=== PATIENT | male | born 1980 | race Caucasian/White ===

== ENCOUNTER → 2021-11-19 | Outpatient (CLI) | payer OTHER ==
--- NOTE | 2021-11-19 08:33 | RAD ---
INDICATION: Reason: RUQ/ LUQ PAIN / Spl. Instructions: / History: COMPARISON: None. TECHNIQUE: Grayscale and color ultrasound images obtained through the abdomen. FINDINGS: Pancreas: Largely obscured by overlying structures Liver: Echotexture within normal limits. Gallbladder: 4 mm nodular focus. Echogenic foci along the wall could either be hyperplastic cholecyst osis or calcification. Common Bile Duct: Not dilated. Right Kidney: No hydronephrosis. Left Kidney: No hydronephrosis. Spleen: Mildly prominent in size. Aorta/IVC: Largely obscured by overlying structures IMPRESSION: * Nodular focus along the gallbladder wall which could be from a focus of hyperplastic cholecystosis or a small polyp. No common bile duct dilation. Electronically signed by: Jimmie Donovan MD (11/19/2021 8:30 AM) [id number]
== END ==
LOC: EDBD 07:10 → US 07:10
PROVIDERS: ATTEND Physician Assistant
DX: K82.8 Other specified diseases of gallbladder (principal)
CPT/HCPCS: 76700